=== PATIENT | female | born 1955 | race Caucasian/White ===

== ENCOUNTER 2017-08-04 05:20 | Day surgery (SDC) | payer BC ==
[~2017-08-04] VITALS: Ht 162.6 cm; Wt 59.4 kg
[2017-08-04] MEDS ORDERED: ONDANSETRON HCL 4 MG/2 ML VIAL IVP PRN ×2 (08:15→09:45)
[2017-08-04] MEDS ORDERED: fentaNYL CITRATE/PF 100 MCG/2 ML AMP IVP PRN ×2 (08:15)
[2017-08-04] MEDS ORDERED: PROPOFOL 200MG/ 20ML VIAL (DIPRIVAN) IV ONE (09:50)
[2017-08-04] MEDS ORDERED: THROMBIN (BOVINE) 5000 UNITS/ VIAL TP ONE (09:50)
[2017-08-04] MEDS ORDERED: MIDAZOLAM HCL 5 MG/5 ML VIAL IVP ONE (09:50)
[2017-08-04] MEDS ORDERED: SEVOFLURANE 15 MIN GAS INH ONE (09:50)
[2017-08-04] MEDS ORDERED: LR 1,000 ML IV.SOLN IV ONE (09:50)
[2017-08-04] MEDS ORDERED: LIDOCAINE/EPI 1% 1:100000 20 ML VIAL INJ ONE (09:50)
[2017-08-04] MEDS ORDERED: CEFAZOLIN 1 GM IVPB PREMIX 50 ML IV ONE (09:50)
[2017-08-04] MEDS ORDERED: SUCCINYLCHOLINE CHLORIDE 20 MG/ML(QUELICIN) IVP ONE (09:50)
[2017-08-04] MEDS ORDERED: NS IRRIG SOLN 1000 ML IR ONE (09:50)
[2017-08-04] MEDS ORDERED: ONDANSETRON HCL 4 MG/2 ML VIAL IVP ONE (09:50)
[2017-08-04] MEDS ORDERED: DEXAMETHASONE SOD PHOSPHATE 4 MG/ML VIAL IVP ONE (09:50)
[2017-08-04] MEDS ORDERED: fentaNYL CITRATE/PF 100 MCG/2 ML AMP IVP ONE (09:50)
[2017-08-04 11:01] VITALS: BP_SYST 130
[2017-08-04] MEDS: HYDROcodone/ACETAMIN 5-325 MG TAB (NORCO/ VICODIN) PO PRN ×3 (11:35→20:23)
[2017-08-04] MEDS: NORMAL SALINE 5 ML DISP.SYRIN IVF SCH ×2 (16:20→22:06)
[2017-08-04 16:57] VITALS: BP_SYST 127
[2017-08-04 20:05] VITALS: BP_SYST 119
[2017-08-04] MEDS: DEXAMETHASONE SOD PHOSPHATE 4 MG/ML VIAL IVP SCH (22:06)
[2017-08-05] MEDS: HYDROcodone/ACETAMIN 5-325 MG TAB (NORCO/ VICODIN) PO PRN ×2 (00:31→05:49)
[2017-08-05 01:10] VITALS: BP_SYST 116
[2017-08-05] MEDS: NORMAL SALINE 5 ML DISP.SYRIN IVF SCH (05:49)
[2017-08-05] MEDS: DEXAMETHASONE SOD PHOSPHATE 4 MG/ML VIAL IVP SCH (05:49)
[2017-08-05 08:00] VITALS: BP_SYST 125
[2017-08-05 08:24] VITALS: BP_SYST 125
== END 2017-08-05 09:44 | disposition home or self-care (01) ==
LOC: SDS 05:20 → SMU 05:20 → SDS 08-05 09:41
PROVIDERS: ATTEND Otolaryngology Plastic Surgery within the Head & Neck
DX: E04.1 Nontoxic single thyroid nodule (principal); M54.32 Sciatica, left side; E05.90 Thyrotoxicosis, unspecified without thyrotoxic crisis or storm; Z90.710 Acquired absence of both cervix and uterus; Z79.899 Other long term (current) drug therapy
CPT/HCPCS: 60240; 87081; 88307; 88331; J0330; J0690; J1100 ×2; J2250; J2405; J2704; J3010; J7120